=== PATIENT | female | born 1985 | race Caucasian/White ===

== ENCOUNTER 2024-02-13 14:29 | Outpatient (AMB) | payer MEDICAID, SELFPAY ==
[2024-02-13 14:38] VITALS: BP 121/85; PULSE 82; RESP 18; TEMP 36.4; O2SAT 99; BMI 40.4
--- NOTE | 2024-02-13 14:38 | PD.ORTHCLVIS ---
Vital signs 02/13/24 14:38 Height 1.63 m Height Method Stated Weight 107.53 kg Weight Measurement Method Standing Scale BMI 40.4 BP 121/85 H Blood Pressure Source Automatic Cuff Blood Pressure Location Right Upper Arm Position Sitting Respiration 18 Pulse 82 Pulse Source Monitor Temp 97.6 F Temp Source Temporal Artery Scan Pulse Oximetry (%) 99 Oxygen Delivery Method Room Air Med/Allergies Allergies & Medications Allergies No Known Allergies Allergy (Verified 02/13/24 14:39) Medication Reconciliation acetaminophen 500 mg tablet (Tylenol Extra Strength) 500 mg PO Q6H PRN 04/25/23 [History Confirmed 02/13/24] bupropion HCl 150 mg 24 hr tablet, extended release 150 mg PO QAM 04/25/23 [History Confirmed 02/13/24] meloxicam 7.5 mg tablet 7.5 mg PO BID #45 tabs 04/25/23 [Rx Confirmed 02/13/24] metoprolol succinate 25 mg tablet,extended release 24 hr 25 mg PO QDAY 04/25/23 [History Confirmed 02/13/24] Subjective Visit Visit for: follow up visit, knee and x-rays Immunization / Flu Flu Vaccine in the Last 12 Months: No Flu Vaccine Exclusion Criteria: No Exclusion Criteria History of Present Illness Chief complaint: FOLLOW UP Patient is a 37-year-old female with a left knee pain. The knee pain has been ongoing for 3 years. She tried injections and physical therapy. She reports continued pain since then. The pain is on the outside of her knee in particular. The last injection lasted 3 months Personal History Occupation: na Hobbies: na Pain Pain level (0-10): 5 Pain duration: COMES AND GOES Pain location: inside (medial), outside (lateral), anterior and posterior Pain quality: sharp, dull, aching and shocking Pain timing: increases with activity Associated signs & symptoms: weakness and none Ambulatory data Ambulatory device: none Treatments Improvement with previous injections: No Improvement with PT: No Improvement with NSAIDS: n/a Review of Systems Review of Systems: All systems negative unless otherwise noted in HPI. Exam Exam Patient is in no acute distress and is cooperative with the examination today. Breathing is nonlabored. Patient has a normal mood and affect. The patient has a gait that is [nonantalgic] Bilateral extremities were evaluated and demonstrates sensation intact to light touch. Palpable pedal pulses are present. No significant edema is present. Bilateral hips were examined. The patient has no pain with log roll of the hips. Internal rotation to 30 degrees and external rotation to 30 degrees is painless. Negative FADIR. Right knee was examined today. The right knee is in reasonable alignment. Range of motion from 0-120 degrees. Knee is stable to varus and valgus as well as AP translation with <5mm. Patient has a negative McMurrays. There is no pain with patellofemoral compression and no crepitus noted. The knee is nontender to palpation. Left knee was examined today. The left knee is in [neutral] alignment. Range of motion from [0-120] degrees. Knee is stable to varus and valgus as well as AP translation with <5mm. Patient has a [negative] McMurrays. There is [no] pain with patellofemoral compression and [no] crepitus noted. The knee is [tender] to palpation Laterally. X-rays from [facility] reviewed by me today. This demonstrates complete joint space obliteration of the lateral compartment. There are osteophytes present as well Assessment and Plan Problem List (1) Unilateral primary osteoarthritis, left knee: Status: Acute Plan: Patient is a 37-year-old female with a surprising amount of left knee osteoarthritis. We discussed nonoperative and operative options. We discussed that I would recommend exhausting conservative treatment especially given how young she is. We discussed anti-inflammatories and injection. She is doing well and does not want another injection (2) Pain in left knee: Status: Acute Office Procedures GNS Level of Care Nursing/Assessment Patient Status: Established Patient Nursing Assessment/Reassesment: Medication Reconciliation, Update PMH in EMR and Vital Signs Coordination of Care: Complex Care and Chronic Disease 1-5, Education Complex Pt/Fam, Consent,records obtained, informed consent, 1 Ins Authorization, Lab and Imaging orders, Results/Orders obtained and Staff clarify orders Special Needs: Language special needs Established Patient Charge Established Patient Point Assignment: 125 Established Patient Point Charge: EP Level 4 (120-155) Past Medical History Past Medical History Have you ever been diagnosed with any of the following: Respiratory Problems Smoking: Yes (1 year) Smoking Exposure: Yes
== END 2024-02-13 14:51 | disposition home or self-care (01) ==
LOC: HODSRG 14:29
PROVIDERS: PCP Student in an Organized Health Care Education/Training Program; Referring Provider Student in an Organized Health Care Education/Training Program; Supervising Provider Orthopaedic Surgery Adult Reconstructive Orthopaedic Surgery; Visit Provider Orthopaedic Surgery Adult Reconstructive Orthopaedic Surgery
DX: M17.12 Unilateral primary osteoarthritis, left knee (principal); M25.562 Pain in left knee
CPT/HCPCS: 99214; G0463

== ENCOUNTER 2024-03-01 11:54 | Outpatient (AMB) | payer MEDICAID, SELFPAY ==
--- NOTE | 2024-03-01 11:48 | ORTHONT_ITS ---
Med/Allergies Allergies & Medications Allergies No Known Allergies Allergy (Verified 03/01/24 11:48) Medication Reconciliation acetaminophen 500 mg tablet (Tylenol Extra Strength) 500 mg PO Q6H PRN 04/25/23 [History Confirmed 03/01/24] bupropion HCl 150 mg 24 hr tablet, extended release 150 mg PO QAM 04/25/23 [History Confirmed 03/01/24] meloxicam 7.5 mg tablet 7.5 mg PO BID #45 tabs 04/25/23 [Rx Confirmed 03/01/24] metoprolol succinate 25 mg tablet,extended release 24 hr 25 mg PO QDAY 04/25/23 [History Confirmed 03/01/24] meloxicam 7.5 mg tablet 7.5 mg PO QDAY #45 tabs 03/01/24 [Rx] Subjective Visit Visit for: follow up visit and x-rays (RESULTS) Immunization / Flu Flu Vaccine in the Last 12 Months: No Flu Vaccine Exclusion Criteria: No Exclusion Criteria History of Present Illness Chief complaint: XRAY RESULTS We went over x-ray results by phone. We discussed that she has significant arthritis. We went over her lab results and they are all normal for rheumatology workup. Pain Pain level (0-10): 6 Pain duration: ON AND OFF Pain location: inside (medial) Pain quality: sharp, dull and aching Pain timing: night and increases with activity Associated signs & symptoms: none Ambulatory data Ambulatory device: none Treatments Improvement with previous injections: No Improvement with PT: No Improvement with NSAIDS: no Review of Systems Review of Systems: All systems negative unless otherwise noted in HPI. Assessment and Plan Problem List (1) Unilateral primary osteoarthritis, left knee: Status: Acute Plan: We discussed with the patient that she has severe arthritis and that she is on the young side for surgery. He. We recommend continued conservative treatment for now. We discussed with her she does not have rheumatoid arthritis according to her work (2) Pain in left knee: Status: Acute Office Procedures GNS Level of Care Nursing/Assessment Patient Status: Established Patient Nursing Assessment/Reassesment: Medication Reconciliation, Update PMH in EMR and Vital Signs Coordination of Care: Complex Care and Chronic Disease 1-5, Education Complex Pt/Fam, Consent,records obtained, informed consent, Results/Orders obtained and Staff clarify orders Special Needs: Language special needs Established Patient Charge Established Patient Point Assignment: 95 Telehealth Telemed Phone/Video with patient at home & Dr,PA,DIRECTOR OF EVENT MARKETING: Yes
== END 2024-03-01 11:56 | disposition home or self-care (01) ==
LOC: HODSRG 11:54
PROVIDERS: PCP Student in an Organized Health Care Education/Training Program; Referring Provider Student in an Organized Health Care Education/Training Program; Supervising Provider Orthopaedic Surgery Adult Reconstructive Orthopaedic Surgery; Visit Provider Orthopaedic Surgery Adult Reconstructive Orthopaedic Surgery
DX: M17.12 Unilateral primary osteoarthritis, left knee (principal); M25.562 Pain in left knee
CPT/HCPCS: 99212; G0463

== ENCOUNTER → 2025-02-13 | Outpatient (CLI) | payer MEDICAID, SELFPAY ==
--- NOTE | 2025-02-13 12:09 | XR_ITS ---
Examination: Knee, left, 3 views Technique: Knee AP, lateral, oblique 3 views Date and time of exam: February 13, 2025, 12:40 p.m. INDICATIONS: Left knee pain beginning 3 years ago. FINDINGS: Advanced left knee tricompartment osteoarthritis Severe narrowing lateral joint space left knee, [id number] No fractures Small knee effusion IMPRESSION: Advanced left knee tricompartment osteoarthritis
== END | disposition home or self-care (01) ==
LOC: CDIM 11:58
PROVIDERS: PCP Student in an Organized Health Care Education/Training Program; Referring Provider Orthopaedic Surgery; Visit Provider Orthopaedic Surgery
DX: M17.12 Unilateral primary osteoarthritis, left knee (principal)
CPT/HCPCS: 73562